=== PATIENT | male | born 1970 | race Caucasian/White ===

== ENCOUNTER 2023-03-23 14:48 | Inpatient (IN) | payer MEDICAID ==
[~2023-03-23] VITALS: Ht 175.3 cm; Wt 71.6 kg
[2023-03-23 16:44] LABS: CLARITY,URINE CLEAR (Clear); COLOR,URINE STRAW (Yellow); GLUCOSE, URINE NEGATIVE (Neg); KETONES,URINE NEGATIVE (Neg); LEUKOCYTE ESTERASE ,URINE NEGATIVE (Neg); NITRITES, URINE NEGATIVE (Neg); OCCULT BLOOD,URINE NEGATIVE (Neg); PH,URINE 5.5 (4.8-8.0); PROTEIN,URINE NEGATIVE (Neg); UROBILINOGEN,URINE 0.2 E.U/dL (0.2-1.0)
[2023-03-23 16:53] LABS: UA COLLECTION TYPE CLN CATCH MIDSTREAM
[2023-03-23 17:40] LABS: BASOPHILS # (AUTO) 0.1 X10'3 (0-0.2); BASOPHILS % (AUTO) 0.3 % (0-1); EOSINOPHILS # (AUTO) 0.1 X10'3 (0-0.9); EOSINOPHILS % (AUTO) 0.5 % (0-6); HEMATOCRIT 33.6 % (42.0-52.0); HEMOGLOBIN 10.4 g/dl (14.0-17.9); LYMPHOCYTES # (AUTO) 1.9 X10'3 (1.1-4.8); LYMPHOCYTES % (AUTO) 10.4 % (21-51); MEAN CORPUSCULAR HEMOGLOBIN 23.7 PG (27.0-31.0); MEAN CORPUSCULAR HGB CONC 30.9 g/dL (33.0-36.5); MEAN CORPUSCULAR VOLUME 76.6 FL (78-98); MEAN PLATELET VOLUME 7.2 FL (7.4-10.4); MONOCYTES % (AUTO) 5.5 % (2-12); NEUTROPHILS # (AUTO) 15.4 X10'3 (1.8-7.7); NEUTROPHILS % (AUTO) 83.3 % (42-75); PLATELET COUNT 445 X10'3 (140-440); RED BLOOD COUNT 4.38 X10'6 (4.70-6.10); RED CELL DISTRIBUTION WIDTH 18.4 % (11.5-14.5); WHITE BLOOD COUNT 18.4 X10'3 (4.5-11.0)
[2023-03-23 17:51] LABS: ALANINE AMINOTRANSFERASE 22 U/L (12-78); ALBUMIN 3.5 G/DL (3.4-5.0); ALKALINE PHOSPHATASE 75 IU/L (46-116); ANION GAP 7 (8-16); ASPARTATE AMINO TRANSFERASE 17 U/L (10-37); BILIRUBIN,TOTAL 0.2 MG/DL (0.1-1.0); BLOOD UREA NITROGEN 30 MG/DL (7-18); BUN/CREATININE RATIO 31.6 (10.0-20.0); CALCIUM 8.8 MG/DL (8.5-10.1); CHLORIDE 101 MMOL/L (99-107); CREATININE 0.95 MG/DL (0.60-1.10); GLUCOSE 123 MG/DL (70-104); LIPASE < 50 U/L (73-393); POTASSIUM 3.9 MMOL/L (3.5-5.1); SODIUM 138 MMOL/L (135-145); TOTAL CARBON DIOXIDE 30.2 MMOL/L (24-32); TOTAL PROTEIN 6.9 G/DL (6.4-8.2); eGFR 83 ML/MIN
[2023-03-23] MEDS ORDERED: ondansetron/PF 4mg/2ml inj IV ONE (22:20)
[2023-03-23] MEDS ORDERED: ketorolac trometh. 30mg/ml inj. IV ONE (22:20)
[2023-03-23] MEDS ORDERED: normal saline 1000ml 1,000 ML IV ONE (23:00)
[2023-03-24] VITALS (46 sets, daily range): BP systolic 96–144; BP diastolic 50–94; PULSE 62–92; RESP 11–22; TEMP 96.7–98.7; O2SAT 95–100
[2023-03-24] MEDS ORDERED: piperacillin/tazo 4.5gm/100ml 100 ML IV SCH (00:15)
[2023-03-24] MEDS ORDERED: pantoprazole 40mg IV 80 MG in normal saline 100ml IV soln 100 ML IV ONE (00:15)
[2023-03-24] MEDS: pantoprazole 40MG/NS 100ML BAG 100 ML IV SCH ×5 (01:00→08:00)
[2023-03-24] MEDS ORDERED: morphine 4 MG/ML inj SYRINge IV ONE (01:30)
[2023-03-24] MEDS ORDERED: ondansetron 4mg rapidly disintigrating tab PO PRN (02:50)
[2023-03-24] MEDS ORDERED: HYDROmorphone inj. 0.5 MG/0.5 ML DISP.SYRIN IV PRN (02:50)
[2023-03-24] MEDS ORDERED: morphine 2 MG/ML inj. syringe IV PRN ×2 (02:50→10:10)
[2023-03-24] MEDS ORDERED: acetaminophen 650mg rectal suppository RC PRN (02:50)
[2023-03-24] MEDS ORDERED: mag hydrox/Alum hydrox/simeth 30ml oral suspension PO PRN (02:50)
[2023-03-24] MEDS ORDERED: bisacodyl 10mg suppository rectal RC PRN (02:50)
[2023-03-24] MEDS ORDERED: magnesium hydroxide 30ml (MOM) UD suspension PO PRN (02:50)
[2023-03-24] MEDS ORDERED: HYDROcodone/acetaminophen 5mg/325mg tablet PO PRN (02:50)
[2023-03-24] MEDS ORDERED: ondansetron/PF 4mg/2ml inj IV PRN ×2 (02:50→10:10)
[2023-03-24] MEDS ORDERED: diphenhydrAMINE 25mg capsule PO PRN (02:50)
[2023-03-24] MEDS ORDERED: diphenhydrAMINE 50 mg/ml inj IV PRN (02:50)
[2023-03-24] MEDS ORDERED: acetaminophen 325mg tablet PO PRN (02:50)
[2023-03-24] MEDS ORDERED: dextrose 5%-1/2 normal saline 1,000 ML IV SCH (02:50)
[2023-03-24 03:16] LABS: APTT 24 SECONDS (22-32)
[2023-03-24 03:20] LABS: MAGNESIUM 1.6 MG/DL (1.5-2.4); PHOSPHORUS 3.1 MG/DL (2.3-4.5)
[2023-03-24] MEDS ORDERED: docusate sod 100mg capsule PO SCH (08:00)
[2023-03-24] MEDS: piperacillin/tazo 4.5gm/100ml 100 ML IV SCH ×3 (08:22→23:47)
[2023-03-24] MEDS: morphine 2 MG/ML inj. syringe IV PRN ×3 (09:14→21:14)
[2023-03-24] MEDS ORDERED: sevoflurane 250ml liquid IH ONE (09:32)
[2023-03-24] MEDS ORDERED: LIDOcaine 2% (20mg/ml) 5ml vial ONE (09:32)
[2023-03-24] MEDS ORDERED: midazolam 1 mg/ML 2ml injection ONE (09:39)
[2023-03-24] MEDS ORDERED: rocuronium 10mg/ml inj IV ONE (09:39)
[2023-03-24] MEDS ORDERED: propofol inj 20 ML IV ONE (09:39)
[2023-03-24] MEDS ORDERED: fentaNYL /PF 50mcg/ml 5ml ampule ONE (09:39)
[2023-03-24] MEDS ORDERED: ceFOXitin 1000 MG inj ONE ×2 (09:50)
[2023-03-24] MEDS ORDERED: dexamethasone sod phosphate 4mg/ml inj. ONE (09:59)
[2023-03-24] MEDS ORDERED: ringers solution, lacted 1,000 ML IV SCH (10:10)
[2023-03-24] MEDS ORDERED: meperidine/PF 25mg/ml syringe IV PRN ×3 (10:10)
[2023-03-24] MEDS ORDERED: morphine 4 MG/ML inj SYRINge IV PRN (10:10)
[2023-03-24] MEDS ORDERED: proCHLORperazine 10 MG/2 ml inj IV PRN (10:10)
[2023-03-24] MEDS ORDERED: ondansetron/PF 4mg/2ml inj ONE (10:30)
[2023-03-24] MEDS ORDERED: glycopyrrolate 0.2mg/ml inj ONE (10:40)
[2023-03-24] MEDS ORDERED: neostigmine methylsulfate 1 MG/ML 10ml vial ONE (10:40)
--- NOTE | 2023-03-24 10:51 | NUR ---
Received from OR via HOSPITAL BED TO RR 7, accompanied by Anesthesiologist ZAKIA and report given by Anesthesiolgist. PATIENT REPORTS PAIN 5/10 INCISIONAL ABD PAIN, MD KOEHLER MEDICATED PATIENT IN ROOM. PATIENT STATES TOLERABLE LEVEL IS A 4-5/10. PATIENT HAS NO C/O NAUSEA AT THIS TIME. VSS, ON 10 L MASK WITH SPO2 AT 100%. NG IN LEFT NARE TO LOW CONT SUCTION, ABD DRESSING CDI WITH INDIRA DRAIN DRAINING. SCD'D ON BILATERAL LEGS. PT RESTING IN BED. RESPIRATIONS EVEN AND UNLABORED. NO DISTRESS NOTED ON EXAM. PLAN OF CARE ONGOING.
--- NOTE | 2023-03-24 12:05 | NUR ---
SPOKE WITH JENNIFER IN WAITING ROOM: GAVE UPDATE ON PATIENT AND ADVISED WE ARE WAITING ON ROOM FOR PATIENT TO BE ADMITTED. SHE VERBALIZED UNDERSTANDING
--- NOTE | 2023-03-24 15:25 | NUR ---
PATIENT HAS MET ALL CRITERIA FOR TRANSFER TO THE ORTHO FLOOR, ROOM 4011B. VSS. DRESSINGS TO ABD CDI. INDIRA DRAIN EMPTIED AND OUTPUT CHARTED. NG IN LEFT NARE TO LOW CONT SUCTION PER MD. BED LOW, CALL LIGHT PRESENT AND 2 RAILS UP. RN PRESENT TO ACCEPT CARE OF PATIENT AND REPORT HAS BEEN CALLED. ALL QUESTIONS ANSWERED TO ACCEPTING NURSE.
--- NOTE | 2023-03-24 16:00 | NUR ---
Patient in room ORTHO 4011. I have received report from SAQIB Farr and had the opportunity to ask questions and assume patient care.
[2023-03-24] MEDS: normal saline 1000ml 1,000 ML IV SCH ×2 (16:54→19:05)
[2023-03-24 17:48] LABS: BASOPHILS % (AUTO) 0.1 % (0-1); EOSINOPHILS % (AUTO) 0 % (0-6); LYMPHOCYTES # (AUTO) 0.3 X10'3 (1.1-4.8); LYMPHOCYTES % (AUTO) 3.8 % (21-51); MEAN CORPUSCULAR HEMOGLOBIN 23.8 PG (27.0-31.0); MEAN CORPUSCULAR HGB CONC 31.4 g/dL (33.0-36.5); MEAN PLATELET VOLUME 6.9 FL (7.4-10.4); MONOCYTES # (AUTO) 0.1 X10'3 (0-0.9); MONOCYTES % (AUTO) 1.4 % (2-12); NEUTROPHILS # (AUTO) 7.8 X10'3 (1.8-7.7); NEUTROPHILS % (AUTO) 94.7 % (42-75); PLATELET COUNT 223 X10'3 (140-440); RED BLOOD COUNT 2.85 X10'6 (4.70-6.10); RED CELL DISTRIBUTION WIDTH 18.3 % (11.5-14.5); WHITE BLOOD COUNT 8.2 X10'3 (4.5-11.0)
[2023-03-24 17:55] LABS: HEMATOCRIT 21.6 % (42.0-52.0); HEMOGLOBIN 6.8 g/dl (14.0-17.9)
--- NOTE | 2023-03-24 18:45 | NUR ---
Problems reprioritized. Patient report given, questions answered & plan of care reviewed with SAQIB Rodrigues.
--- NOTE | 2023-03-24 18:45 | NUR ---
Page Sent PAGER ID: [phone] MESSAGE: [id number] linwood Christie has a critical H/H 6.8/ 21.6. alexis [phone]
--- NOTE | 2023-03-24 18:50 | NUR ---
Per DR Ann he was unaware that the patient was pale after calling about his hgb of 6.8 and hct of 21.6. Dr advised to transfuse 1 unit of prbcs
--- NOTE | 2023-03-24 18:58 | NUR ---
paged dr agosto she did not want to infuse pt, referred to pavan to let him know. waiting for a call back. passing this on to weight shifter nurse to follow up
--- NOTE | 2023-03-24 19:17 | NUR ---
per dr baxter, will redraw pt h/h in am and then did 2 mg morphine Q3H.
[2023-03-24] MEDS ORDERED: temazepam 15mg capsule PO PRN (21:00)
[2023-03-25 02:00] VITALS: BP 123/78; PULSE 84; RESP 16; TEMP 97.5; O2SAT 99
[2023-03-25] MEDS: morphine 2 MG/ML inj. syringe IV PRN ×4 (02:40→19:41)
[2023-03-25] MEDS: normal saline 1000ml 1,000 ML IV SCH ×2 (05:05→06:42)
[2023-03-25 06:00] VITALS: BP 112/59; PULSE 89; RESP 16; TEMP 98.3; O2SAT 96
--- NOTE | 2023-03-25 06:00 | NUR ---
Patient in room ORTHO 4011. I have received report from SAQIB Rodrigues and had the opportunity to ask questions and assume patient care.
[2023-03-25 06:30] LABS: BASOPHILS % (AUTO) 0.1 % (0-1); EOSINOPHILS % (AUTO) 0 % (0-6); HEMATOCRIT 22.4 % (42.0-52.0); HEMOGLOBIN 7.4 g/dl (14.0-17.9); LYMPHOCYTES # (AUTO) 0.9 X10'3 (1.1-4.8); LYMPHOCYTES % (AUTO) 8.8 % (21-51); MEAN CORPUSCULAR HEMOGLOBIN 25.9 PG (27.0-31.0); MEAN CORPUSCULAR HGB CONC 33.3 g/dL (33.0-36.5); MEAN CORPUSCULAR VOLUME 77.9 FL (78-98); MEAN PLATELET VOLUME 7.2 FL (7.4-10.4); MONOCYTES # (AUTO) 0.8 X10'3 (0-0.9); NEUTROPHILS # (AUTO) 8.7 X10'3 (1.8-7.7); NEUTROPHILS % (AUTO) 83.1 % (42-75); PLATELET COUNT 240 X10'3 (140-440); RED BLOOD COUNT 2.87 X10'6 (4.70-6.10); WHITE BLOOD COUNT 10.5 X10'3 (4.5-11.0)
[2023-03-25 06:47] LABS: ALANINE AMINOTRANSFERASE 21 U/L (12-78); ALBUMIN 2.6 G/DL (3.4-5.0); ALBUMIN/GLOBULIN RATIO 0.8 (1.1-1.5); ALKALINE PHOSPHATASE 56 IU/L (46-116); ANION GAP 7 (8-16); ASPARTATE AMINO TRANSFERASE 19 U/L (10-37); BILIRUBIN,TOTAL 0.7 MG/DL (0.1-1.0); BLOOD UREA NITROGEN 12 MG/DL (7-18); BUN/CREATININE RATIO 12.8 (10.0-20.0); CALCIUM 8.3 MG/DL (8.5-10.1); CHLORIDE 101 MMOL/L (99-107); CREATININE 0.94 MG/DL (0.60-1.10); GLUCOSE 111 MG/DL (70-104); SODIUM 136 MMOL/L (135-145); TOTAL CARBON DIOXIDE 27.7 MMOL/L (24-32); TOTAL PROTEIN 5.7 G/DL (6.4-8.2); eGFR 84 ML/MIN
[2023-03-25] MEDS: pantoprazole 40MG/NS 100ML BAG 100 ML IV SCH (07:49)
[2023-03-25 08:57] LABS: PLATELET ESTIMATE NORMAL
[2023-03-25 08:58] LABS: ANISOCYTOSIS 2+; MICROCYTOSIS 1+
[2023-03-25] MEDS: piperacillin/tazo 4.5gm/100ml 100 ML IV SCH ×3 (08:59→23:00)
[2023-03-25 10:00] VITALS: BP 120/69; PULSE 80; RESP 16; TEMP 97.7; O2SAT 100
[2023-03-25] MEDS: dextrose 5%-normal saline 1,000 ML IV SCH ×2 (10:34→19:40)
[2023-03-25] MEDS: HYDROcodone/acetaminophen 10/325mg tab PO PRN (15:02)
[2023-03-25 16:30] LABS: BASOPHILS % (AUTO) 0.2 % (0-1); EOSINOPHILS % (AUTO) 0.4 % (0-6); HEMATOCRIT 26.3 % (42.0-52.0); HEMOGLOBIN 8.5 g/dl (14.0-17.9); LYMPHOCYTES # (AUTO) 1.1 X10'3 (1.1-4.8); LYMPHOCYTES % (AUTO) 13.4 % (21-51); MEAN CORPUSCULAR HEMOGLOBIN 25.4 PG (27.0-31.0); MEAN CORPUSCULAR HGB CONC 32.2 g/dL (33.0-36.5); MEAN PLATELET VOLUME 7.1 FL (7.4-10.4); MONOCYTES # (AUTO) 0.8 X10'3 (0-0.9); MONOCYTES % (AUTO) 9.6 % (2-12); NEUTROPHILS # (AUTO) 6.5 X10'3 (1.8-7.7); NEUTROPHILS % (AUTO) 76.4 % (42-75); PLATELET COUNT 246 X10'3 (140-440); RED BLOOD COUNT 3.33 X10'6 (4.70-6.10); RED CELL DISTRIBUTION WIDTH 19.5 % (11.5-14.5); WHITE BLOOD COUNT 8.5 X10'3 (4.5-11.0)
--- NOTE | 2023-03-25 17:00 | NUR ---
PT AMBULATED AROUND NURSING UNIT WITH . PT STATED HE HAS STARTED TO PASS GAS
[2023-03-25 17:12] LABS: PLATELET ESTIMATE NORMAL
[2023-03-25 17:13] LABS: ANISOCYTOSIS 1+; MICROCYTOSIS 2+
--- NOTE | 2023-03-25 17:58 | NUR ---
i have reviewed orient rn physical assessment and agree with documented assessment
[2023-03-25 18:00] VITALS: BP 118/73; PULSE 74; RESP 16; TEMP 97.9; O2SAT 93
[2023-03-25 20:00] VITALS: RESP 14; O2SAT 93
--- NOTE | 2023-03-25 20:00 | NUR ---
pt refusing PO pain meds, only wants IV at this time
[2023-03-25 22:00] VITALS: BP 169/63; PULSE 75; RESP 18; TEMP 97.9; O2SAT 97
--- NOTE | 2023-03-26 03:26 | NUR ---
Patient in room ORTHO 4011. I have received report from Renetta CERRATO and had the opportunity to ask questions and assume patient care.
[2023-03-26] MEDS: dextrose 5%-normal saline 1,000 ML IV SCH ×2 (05:09→17:41)
[2023-03-26 06:00] VITALS: BP 124/64; PULSE 73; RESP 17; TEMP 98.3; O2SAT 96
--- NOTE | 2023-03-26 06:49 | NUR ---
Problems reprioritized. Patient report given, questions answered & plan of care reviewed with Judi CERRATO.
--- NOTE | 2023-03-26 06:55 | NUR ---
Patient in room ORTHO 4011. I have received report from alesha JAFFE and had the opportunity to ask questions and assume patient care.
[2023-03-26 07:12] LABS: BASOPHILS % (AUTO) 0.3 % (0-1); EOSINOPHILS % (AUTO) 0.7 % (0-6); HEMATOCRIT 23.6 % (42.0-52.0); HEMOGLOBIN 7.5 g/dl (14.0-17.9); LYMPHOCYTES # (AUTO) 0.9 X10'3 (1.1-4.8); LYMPHOCYTES % (AUTO) 13.7 % (21-51); MEAN CORPUSCULAR HEMOGLOBIN 25.1 PG (27.0-31.0); MEAN CORPUSCULAR VOLUME 78.5 FL (78-98); MEAN PLATELET VOLUME 6.8 FL (7.4-10.4); MONOCYTES # (AUTO) 0.5 X10'3 (0-0.9); MONOCYTES % (AUTO) 8.3 % (2-12); NEUTROPHILS # (AUTO) 4.9 X10'3 (1.8-7.7); PLATELET COUNT 269 X10'3 (140-440); RED CELL DISTRIBUTION WIDTH 19.7 % (11.5-14.5); WHITE BLOOD COUNT 6.3 X10'3 (4.5-11.0)
[2023-03-26 07:29] LABS: ALANINE AMINOTRANSFERASE 21 U/L (12-78); ALBUMIN 2.6 G/DL (3.4-5.0); ALBUMIN/GLOBULIN RATIO 0.7 (1.1-1.5); ALKALINE PHOSPHATASE 56 IU/L (46-116); ANION GAP 7 (8-16); ASPARTATE AMINO TRANSFERASE 17 U/L (10-37); BILIRUBIN,TOTAL 0.3 MG/DL (0.1-1.0); BLOOD UREA NITROGEN 10 MG/DL (7-18); BUN/CREATININE RATIO 11.6 (10.0-20.0); CALCIUM 8.5 MG/DL (8.5-10.1); CHLORIDE 101 MMOL/L (99-107); CREATININE 0.86 MG/DL (0.60-1.10); GLUCOSE 122 MG/DL (70-104); POTASSIUM 3.6 MMOL/L (3.5-5.1); SODIUM 138 MMOL/L (135-145); TOTAL CARBON DIOXIDE 30.5 MMOL/L (24-32); TOTAL PROTEIN 6.1 G/DL (6.4-8.2); eGFR > 90 ML/MIN
[2023-03-26 08:06] LABS: ANISOCYTOSIS 2+; HYPOCHROMASIA 1+; MICROCYTOSIS 1+; PLATELET ESTIMATE NORMAL
[2023-03-26 08:10] LABS: ELLIPTOCYTES FEW; POLYCHROMASIA 1+
[2023-03-26] MEDS: HYDROcodone/acetaminophen 10/325mg tab PO PRN ×2 (08:20→17:35)
[2023-03-26] MEDS: pantoprazole 40MG/NS 100ML BAG 100 ML IV SCH (08:29)
[2023-03-26] MEDS: piperacillin/tazo 4.5gm/100ml 100 ML IV SCH (08:29)
[2023-03-26 10:00] VITALS: BP 123/58; PULSE 73; RESP 16; TEMP 98.1; O2SAT 97
[2023-03-26 18:00] VITALS: BP 128/76; PULSE 75; RESP 18; TEMP 97.9; O2SAT 100
--- NOTE | 2023-03-26 18:38 | NUR ---
patient seen by Dr olson NG removed. patient still on ice chips , not to advance yet per Dr olson. Allowed popsicles . INDIRA 50mls serosang . Appears stable report given to felipe CERRATO
--- NOTE | 2023-03-26 18:40 | NUR ---
Patient in room ORTHO 4011. I have received report from SAQIB WINTER and had the opportunity to ask questions and assume patient care.
[2023-03-26 20:00] LABS: BASOPHILS % (AUTO) 0.4 % (0-1); EOSINOPHILS # (AUTO) 0.1 X10'3 (0-0.9); EOSINOPHILS % (AUTO) 1.6 % (0-6); HEMATOCRIT 26.5 % (42.0-52.0); HEMOGLOBIN 8.5 g/dl (14.0-17.9); LYMPHOCYTES # (AUTO) 1.2 X10'3 (1.1-4.8); LYMPHOCYTES % (AUTO) 15.3 % (21-51); MEAN CORPUSCULAR HEMOGLOBIN 25.7 PG (27.0-31.0); MEAN CORPUSCULAR VOLUME 80.4 FL (78-98); MEAN PLATELET VOLUME 6.8 FL (7.4-10.4); MONOCYTES # (AUTO) 0.8 X10'3 (0-0.9); MONOCYTES % (AUTO) 10.7 % (2-12); NEUTROPHILS # (AUTO) 5.5 X10'3 (1.8-7.7); PLATELET COUNT 328 X10'3 (140-440); RED BLOOD COUNT 3.29 X10'6 (4.70-6.10); RED CELL DISTRIBUTION WIDTH 19.5 % (11.5-14.5); WHITE BLOOD COUNT 7.7 X10'3 (4.5-11.0)
[2023-03-26 20:21] LABS: ALANINE AMINOTRANSFERASE 24 U/L (12-78); ALBUMIN 2.8 G/DL (3.4-5.0); ALBUMIN/GLOBULIN RATIO 0.7 (1.1-1.5); ALKALINE PHOSPHATASE 55 IU/L (46-116); ANION GAP 8 (8-16); ASPARTATE AMINO TRANSFERASE 18 U/L (10-37); BILIRUBIN,TOTAL 0.4 MG/DL (0.1-1.0); BLOOD UREA NITROGEN 10 MG/DL (7-18); BUN/CREATININE RATIO 11.2 (10.0-20.0); CALCIUM 9.2 MG/DL (8.5-10.1); CHLORIDE 100 MMOL/L (99-107); CREATININE 0.89 MG/DL (0.60-1.10); GLUCOSE 114 MG/DL (70-104); POTASSIUM 3.8 MMOL/L (3.5-5.1); SODIUM 136 MMOL/L (135-145); TOTAL CARBON DIOXIDE 28.4 MMOL/L (24-32); TOTAL PROTEIN 6.8 G/DL (6.4-8.2); eGFR 89 ML/MIN
[2023-03-26] MEDS: ciprofloxacin lact 400MG/200ML 200 ML IV SCH (20:36)
[2023-03-26 22:00] VITALS: BP 110/65; PULSE 70; RESP 18; TEMP 97.7; O2SAT 99
[2023-03-26] MEDS: metroNIDAZOLE-Flagyl 500mg/NS 100 ML IV SCH (22:10)
[2023-03-27] MEDS: HYDROcodone/acetaminophen 10/325mg tab PO PRN ×2 (03:02→08:00)
--- NOTE | 2023-03-27 06:44 | NUR ---
Problems reprioritized. Patient report given, questions answered & plan of care reviewed with SAQIB MACHUCA.
--- NOTE | 2023-03-27 06:48 | NUR ---
Patient in room ORTHO 4011. I have received report from VASHTI CERRATO and had the opportunity to ask questions and assume patient care.
[2023-03-27 07:07] VITALS: BP 114/72; PULSE 57; RESP 16; TEMP 98.1; O2SAT 97
[2023-03-27 07:07] LABS: BASOPHILS % (AUTO) 0.7 % (0-1); EOSINOPHILS # (AUTO) 0.2 X10'3 (0-0.9); EOSINOPHILS % (AUTO) 4.3 % (0-6); HEMOGLOBIN 7.9 g/dl (14.0-17.9); LYMPHOCYTES % (AUTO) 22.3 % (21-51); MEAN CORPUSCULAR HEMOGLOBIN 25.9 PG (27.0-31.0); MEAN CORPUSCULAR HGB CONC 32.8 g/dL (33.0-36.5); MEAN PLATELET VOLUME 6.5 FL (7.4-10.4); MONOCYTES # (AUTO) 0.4 X10'3 (0-0.9); MONOCYTES % (AUTO) 9.2 % (2-12); NEUTROPHILS % (AUTO) 63.5 % (42-75); PLATELET COUNT 270 X10'3 (140-440); RED BLOOD COUNT 3.04 X10'6 (4.70-6.10); RED CELL DISTRIBUTION WIDTH 19.8 % (11.5-14.5); WHITE BLOOD COUNT 4.7 X10'3 (4.5-11.0)
[2023-03-27 07:25] LABS: ALANINE AMINOTRANSFERASE 18 U/L (12-78); ALBUMIN 2.5 G/DL (3.4-5.0); ALBUMIN/GLOBULIN RATIO 0.7 (1.1-1.5); ALKALINE PHOSPHATASE 55 IU/L (46-116); ANION GAP 6 (8-16); ASPARTATE AMINO TRANSFERASE 15 U/L (10-37); BILIRUBIN,TOTAL 0.3 MG/DL (0.1-1.0); BLOOD UREA NITROGEN 11 MG/DL (7-18); BUN/CREATININE RATIO 13.3 (10.0-20.0); CALCIUM 8.7 MG/DL (8.5-10.1); CHLORIDE 103 MMOL/L (99-107); CREATININE 0.83 MG/DL (0.60-1.10); GLUCOSE 103 MG/DL (70-104); POTASSIUM 3.5 MMOL/L (3.5-5.1); SODIUM 139 MMOL/L (135-145); TOTAL CARBON DIOXIDE 29.9 MMOL/L (24-32); TOTAL PROTEIN 6.1 G/DL (6.4-8.2); eGFR > 90 ML/MIN
[2023-03-27] MEDS: pantoprazole 40MG/NS 100ML BAG 100 ML IV SCH (07:54)
[2023-03-27] MEDS: metroNIDAZOLE-Flagyl 500mg/NS 100 ML IV SCH ×2 (07:55→22:02)
[2023-03-27] MEDS: ciprofloxacin lact 400MG/200ML 200 ML IV SCH ×2 (07:55→20:27)
[2023-03-27] MEDS: dextrose 5%-normal saline 1,000 ML IV SCH ×2 (08:00→12:42)
[2023-03-27 11:54] VITALS: RESP 16; O2SAT 100
[2023-03-27 13:30] VITALS: BP 124/77; PULSE 57; RESP 16; TEMP 97.2; O2SAT 100
[2023-03-27] MEDS: acetaminophen 325mg tablet PO PRN (16:57)
[2023-03-27 18:00] VITALS: BP 145/69; PULSE 61; RESP 12; TEMP 97.4; O2SAT 100
--- NOTE | 2023-03-27 18:39 | NUR ---
Problems reprioritized. Patient report given TO MITCHELL CERRATO, questions answered & plan of care reviewed with .
--- NOTE | 2023-03-27 18:40 | NUR ---
Patient in room ORTHO 4011. I have received report from SAQIB MACHUCA and had the opportunity to ask questions and assume patient care.
[2023-03-27] MEDS ORDERED: morphine 2 MG/ML inj. syringe IV PRN ×2 (19:05)
[2023-03-27 22:00] VITALS: BP 118/63; PULSE 83; RESP 18; TEMP 97.5; O2SAT 99
[2023-03-28] MEDS: dextrose 5%-normal saline 1,000 ML IV SCH (03:54)
[2023-03-28] MEDS: acetaminophen 325mg tablet PO PRN (06:01)
--- NOTE | 2023-03-28 06:16 | NUR ---
Patient in room ORTHO 4011. I have received report from VASHTI CERRATO and had the opportunity to ask questions and assume patient care.
--- NOTE | 2023-03-28 06:18 | NUR ---
Problems reprioritized. Patient report given, questions answered & plan of care reviewed with SAQIB MACHUCA.
[2023-03-28 06:42] LABS: BASOPHILS % (AUTO) 0.6 % (0-1); EOSINOPHILS # (AUTO) 0.2 X10'3 (0-0.9); EOSINOPHILS % (AUTO) 3.5 % (0-6); HEMATOCRIT 25.9 % (42.0-52.0); HEMOGLOBIN 8.5 g/dl (14.0-17.9); LYMPHOCYTES % (AUTO) 18.9 % (21-51); MEAN CORPUSCULAR HEMOGLOBIN 25.7 PG (27.0-31.0); MEAN CORPUSCULAR HGB CONC 32.7 g/dL (33.0-36.5); MEAN CORPUSCULAR VOLUME 78.6 FL (78-98); MEAN PLATELET VOLUME 6.4 FL (7.4-10.4); MONOCYTES # (AUTO) 0.4 X10'3 (0-0.9); MONOCYTES % (AUTO) 8.5 % (2-12); NEUTROPHILS # (AUTO) 3.5 X10'3 (1.8-7.7); NEUTROPHILS % (AUTO) 68.5 % (42-75); PLATELET COUNT 351 X10'3 (140-440); RED CELL DISTRIBUTION WIDTH 19.8 % (11.5-14.5); WHITE BLOOD COUNT 5.1 X10'3 (4.5-11.0)
[2023-03-28 07:02] VITALS: BP 103/73; PULSE 75; RESP 16; TEMP 97.9; O2SAT 99
[2023-03-28 07:25] LABS: ALANINE AMINOTRANSFERASE 20 U/L (12-78); ALBUMIN 2.8 G/DL (3.4-5.0); ALBUMIN/GLOBULIN RATIO 0.8 (1.1-1.5); ANION GAP 8 (8-16); ASPARTATE AMINO TRANSFERASE 12 U/L (10-37); BILIRUBIN,TOTAL 0.4 MG/DL (0.1-1.0); BLOOD UREA NITROGEN 13 MG/DL (7-18); BUN/CREATININE RATIO 15.1 (10.0-20.0); CALCIUM 8.8 MG/DL (8.5-10.1); CHLORIDE 100 MMOL/L (99-107); CREATININE 0.86 MG/DL (0.60-1.10); GLUCOSE 104 MG/DL (70-104); POTASSIUM 3.5 MMOL/L (3.5-5.1); SODIUM 138 MMOL/L (135-145); TOTAL CARBON DIOXIDE 29.9 MMOL/L (24-32); TOTAL PROTEIN 6.4 G/DL (6.4-8.2); eGFR > 90 ML/MIN
[2023-03-28 07:26] LABS: ALKALINE PHOSPHATASE 59 IU/L (46-116)
[2023-03-28] MEDS ORDERED: pantoprazole 40mg Tablet.DR PO SCH (07:30)
[2023-03-28 07:46] LABS: PLATELET ESTIMATE NORMAL
[2023-03-28 07:47] LABS: ANISOCYTOSIS 2+; HYPOCHROMASIA 1+; MICROCYTOSIS 1+; POLYCHROMASIA 1+
[2023-03-28] MEDS: metroNIDAZOLE-Flagyl 500mg/NS 100 ML IV SCH (08:23)
[2023-03-28] MEDS: ciprofloxacin lact 400MG/200ML 200 ML IV SCH (08:23)
[2023-03-28] MEDS ORDERED: PANT40TA54 PO (08:47)
[2023-03-28] MEDS ORDERED: METR-159 PO (08:47)
[2023-03-28] MEDS ORDERED: CIPR-259 PO (08:47)
[2023-03-28] MEDS ORDERED: FERR324T4 PO (08:47)
[2023-03-28 09:34] VITALS: RESP 16; O2SAT 99
--- NOTE | 2023-03-28 12:16 | NUR ---
PT. ALERT AND STABLE UPON DISCHARGE. IV CANNULA WHOLE AND INTACT UPON REMOVAL. INDIRA DRAIN REMOVED AND 45ML DRAINED, PT. TOLERATED WELL. PT INSTRUCTED TO TAKE ORAL ANTIBIOTICS PRESCRIBED, AND EDUCATED ON WOUND CARE. PT. LEFT WITH ALL BELONGINGS. PT. LEFT WITH SPOUSE AND SAFELY ESCORTED INTO PRIVATE VEHICLE. PT. INSTRUCTED TO FOLLOW UP WITH THE PRIMARY CARE PROVIDER WITHIN 1 WEEK.
== END 2023-03-28 12:18 | disposition home or self-care (01) | DRG 223 ==
LOC: ER 14:48 → ED HOLD 03-24 02:52 → ORTHO 4S 03-24 16:44
PROVIDERS: ADMIT Family Medicine; ATTEND Internal Medicine
PROC: 30233N1 Transfusion of Nonautologous Red Blood Cells into Peripheral Vein, Percutaneous Approach (ICD-10-PCS; 2023-03-24)
PROC: 0DU907Z Supplement Duodenum with Autologous Tissue Substitute, Open Approach (ICD-10-PCS; principal; 2023-03-24 09:32)
PROC: 0D9670Z Drainage of Stomach with Drainage Device, Via Natural or Artificial Opening (ICD-10-PCS; 2023-03-25)
DX: K26.1 Acute duodenal ulcer with perforation (principal); N17.0 Acute kidney failure with tubular necrosis; K81.0 Acute cholecystitis; D50.0 Iron deficiency anemia secondary to blood loss (chronic); E86.1 Hypovolemia; F10.21 Alcohol dependence, in remission; K21.9 Gastro-esophageal reflux disease without esophagitis; K59.09 Other constipation; N18.9 Chronic kidney disease, unspecified; Z87.891 Personal history of nicotine dependence
CPT/HCPCS: 36415; 36430; 71045; 74176; 76700; 80053; 81003; 82948; 83605; 83690; 83735; 83880; 84100; 84145; 85008; 85025; 85610; 85730; 86885; 86900; 86901; 86920; 87040; 93005; 99285; A4615; A4618; A6449; A7000; C1758; C9113; G0378; J0694; J0744; J1100; J1885; J2175; J2250; J2270; J2405; J2543; J2704; J2710; J3010; J3490; J7030; J7040; J7042; J7120; P9016